=== PATIENT | female | born 1930 | race Caucasian/White ===

== ENCOUNTER 2017-03-14 20:38 | Inpatient (IN) ==
[2017-03-14 22:16] LABS: MANUAL DIFF NEEDED? NO
[2017-03-14 23:00] LABS: AGAP 12; ALBUMIN 4.2 g/dL (3.5-5.0); ALKALINE PHOSPHATASE 152 U/L (32-104); BUN 20 mg/dL (8-22); CALCIUM 9.6 mg/dL (8.8-10.2); CHLORIDE 98 mmol/L (98-107); COSMO 277; GOT 32 U/L (10-30); GPT 31 U/L (10-36); POTASSIUM 4.3 mmol/L (3.5-5.1); SODIUM 137 mmol/L (136-145); TCO2 27 mmol/L (25-35); TOTAL PROTEIN 6.8 g/dL (6.3-8.3)
[2017-03-14 23:09] LABS: BASO% 0.9 % (0.0-0.8); EOS# 0.19 X1000 (0.0-0.7); EOS% 2.1 % (0.0-10.0); HEMATOCRIT 42.8 % (37.0-47.0); HEMOGLOBIN 14.2 g/dL (12.0-16.0); IMM GRAN# 0.03 X1000 (0.0-0.04); IMM GRAN% 0.3 % (0.0-0.5); LYMPH# 1.55 X1000 (1.2-3.4); LYMPH% 17.2 % (20.5-51.1); MCH 30.4 PG (27-31); MCHC 33.2 g/dL (33-37); MCV 91.6 FL (81-99); MONO# 1.08 X1000 (0.11-0.59); MPV 10.4 FL (7.4-10.4); NEUT% 67.5 % (42.2-75.2); PLT 268 X1000 (130-400); RBC 4.67 XMIL (4.2-5.4)
[2017-03-14 23:32] LABS: INR 0.96 (0.86-1.15); PROTIME 13.1 Seconds (12.1-15.5)
[2017-03-15] MEDS ORDERED: ZOFRAN IV PRN (02:50)
[2017-03-15] MEDS ORDERED: TYLENOL PO PRN (02:50)
[2017-03-15] MEDS ORDERED: SODIUM CHLORIDE 0.9% INJ SCH (03:00)
[2017-03-15] MEDS: REQUIP PO SCH (03:48)
[2017-03-15] MEDS: PROTONIX IV SCH (03:48)
[2017-03-15] MEDS: NS 1,000 ML IV SCH ×2 (03:49→15:38)
--- NOTE | 2017-03-15 04:11 | HISTORY AND PHYSICAL ---
PRIMARY CARE PROVIDER: Dr. Lin. CHIEF COMPLAINT: Rectal bleeding. HISTORY OF PRESENT ILLNESS: Ms. Witt is an 86-year-old, female who presented to the ER at [facility] with complaints of onset of bloody stools that started approximately at 7 [facility]. Patient states that she went and ate dinner with her daughter, came home and felt as though she had to have a bowel movement, and that is when she noticed bright red blood in the toilet. The patient reports that since the initial onset, she has had approximately 4-5 episodes of passing bright red blood in her stool. Patient denies any previous history of this as well as having any previous history of gastrointestinal bleeding, diverticulosis, or diverticulitis. She denies any dizziness, fatigue, weakness, nausea, vomiting, or abdominal pain. Patient states that she takes one 81 mg aspirin daily. Otherwise, does not take any other over-the- counter NSAIDs. She denies any new medications or changes in her current home medications. She denies any fever, body aches, or chills. She denies any headache, dizziness, lightheadedness, chest pain, shortness of breath, abdominal pain, nausea, vomiting, diarrhea, dysuria, or urinary frequency. The patient does report some pain and tenderness in her lower extremities but states this is not of new onset and has been ongoing for years, and states that she has previously been evaluated for this. She currently takes Requip for restless legs. She also has chronic back pain due to scoliosis and spinal stenosis for which she takes Neurontin. Upon evaluation in the ER at [facility], the patient was found to be hemodynamically stable. At this time, her hemoglobin hematocrit are 14.2 and 42.8. Blood pressure is 83, as well as 144/61. She was transferred from [facility] ER for inpatient admission at [facility] and we will place a consult with gastroenterology for further evaluation of lower GI bleeding. REVIEW OF SYSTEMS: A 12 point review of systems was conducted with the patient. All were negative except for pertinent positives mentioned above in the HPI. PAST MEDICAL HISTORY: 1. Hypertension. 2. Restless legs syndrome. 3. Scoliosis. 4. Spinal stenosis. PAST SURGICAL HISTORY: 1. Cholecystectomy. 2. Bilateral carpal tunnel surgery. 3. Surgery bilaterally for trigger finger repair. SOCIAL HISTORY: The patient states that she currently lives alone, is a resident of [facility] in [place]. She denies any past or present history of tobacco, alcohol, or illicit drug use. FAMILY HISTORY: She reports that her mother at age 46 secondary to cervical cancer. She also had a history of thyroid disease. She states that her father had a history of diabetes mellitus and heart disease. She does not have any siblings. ALLERGIES: Patient reports allergies to penicillin, Lyrica, and codeine. HOME MEDICATIONS: 1. Gabapentin 300 mg p.o. b.i.d. 2. Aspirin 81 mg p.o. daily. 3. Requip 1 mg p.o. at bedtime. 4. Norvasc 5 mg p.o. q.a.m. DIAGNOSTIC DATA/LABORATORY RESULTS: White blood cell count 9.03, hemoglobin 14.2, hematocrit 42.8, platelet count 268,000. PT 13.1, INR 0.96. Sodium 137, potassium 4.3, chloride 98, bicarb 27, BUN 20, creatinine 0.8, glucose 111, calcium 9.6. Total bilirubin 0.2, AST 32, ALT 31, alkaline phosphatase is 152, lipase is 72. Pending diagnostic study at this time is a CT of the abdomen and pelvis with oral contrast only as well as an EKG in the morning. PHYSICAL EXAMINATION: VITAL SIGNS: Temperature 97.8 degrees, heart rate 83, respirations 18, blood pressure 144/61, oxygen saturation is 100% on room air. GENERAL: Ms. Miryam painter is a pleasant, 86-year-old, female who is resting comfortably in the inpatient bed. She was in no acute distress. She was awake, alert, and able to answer all questions appropriately. HEENT: Head is atraumatic, normocephalic. Pupils are equal, round, reactive to light with 3 mm bilaterally and brisk. Subconjunctivae were pink. Oral mucosa is moist. Oropharynx is clear. NECK: Supple. Trachea midline. No carotid bruits noted bilaterally upon auscultation. CARDIOVASCULAR: Patient has a normal S1 and S2. No murmurs, gallops, or rubs appreciated. PULMONARY: Patient symmetrical chest expansion bilaterally. Lung sounds are clear to auscultation in bilateral full paul. ABDOMEN: Soft, nondistended, though the patient was tender upon palpation in the left lower quadrant. No rebound tenderness noted. Bowel sounds were present in all 4 quadrants, were slightly hyperactive. EXTREMITIES: No cyanosis, clubbing, or edema noted. Pulse, motor, and sensory were intact in all extremities as well. Pedal pulses were 3+ bilaterally. The patient did report some slight tenderness upon palpation of the lower extremities, though states this is not a new onset and has been ongoing for a few years. No swelling noted to the lower extremities. INTEGUMENTARY: Patient's skin is pink, warm, dry, and intact. No lesions or sores noted. NEUROLOGICAL: Patient is alert and oriented to person, place, time, and situation. Cranial nerves 2-12 are grossly intact. ASSESSMENT AND PLAN: 1. Lower gastrointestinal bleed. For this, we will place the patient NPO at this time. We have placed a consult with Dr. Vincent with gastroenterology, and will await his evaluation and further recommendations. The patient did have some left lower quadrant tenderness upon examination. We have ordered a CT of the abdomen and pelvis with oral contrast for further evaluation of this and to rule out any diverticulitis or colitis. We will repeat a CBC in the morning and closely monitor the patient's hemodynamic status. We will continue to follow. 2. Hypertension. We will continue the patient's Norvasc 5 mg by mouth daily. At this time, the patient is hemodynamically stable. Blood pressure is within normal limits with the last reading of 144/61. 3. Restless legs syndrome. We will continue the patient's Requip. 4. Chronic back pain secondary to a history of scoliosis and spinal stenosis. We will continue the patient's Neurontin. The patient will be placed on the medical floor with telemetry. She will have vital signs every 4 hours. Deep venous thrombosis prophylaxis at this time will be provided with sequential compression devices. Gastrointestinal prophylaxis we have provided with Protonix 40 mg intravenous every 24 hours. We will repeat a CBC and BMP in the morning. We will provide fluid hydration with normal saline at 85 mL per hour. We will await the results of the CT of the abdomen and pelvis. Further orders and recommendations pending hospital course , diagnostic studies, and physician evaluation. Dictated by RYANN Domingo for Jerry Smith MD Examined pt myself and discussed case with CASHIER MANAGER cc: OlakunMD Bertha Benavides MD [facility]
[2017-03-15 06:36] LABS: MANUAL DIFF NEEDED? NO
[2017-03-15 06:39] LABS: BASO% 0.8 % (0.0-0.8); EOS# 0.11 X1000 (0.0-0.7); EOS% 1.8 % (0.0-10.0); HEMATOCRIT 36.8 % (37.0-47.0); HEMOGLOBIN 12.5 g/dL (12.0-16.0); IMM GRAN# 0.02 X1000 (0.0-0.04); IMM GRAN% 0.3 % (0.0-0.5); LYMPH% 17.8 % (20.5-51.1); MCV 91.3 FL (81-99); MONO# 0.67 X1000 (0.11-0.59); MONO% 10.8 % (1.7-9.3); MPV 9.7 FL (7.4-10.4); NEUT% 68.5 % (42.2-75.2); PLT 256 X1000 (130-400); RBC 4.03 XMIL (4.2-5.4)
[2017-03-15 07:13] LABS: AGAP 12; BUN 21 mg/dL (8-22); CALCIUM 8.8 mg/dL (8.8-10.2); CHLORIDE 101 mmol/L (98-107); COSMO 275; POTASSIUM 4.4 mmol/L (3.5-5.1); SODIUM 136 mmol/L (136-145); TCO2 23 mmol/L (25-35)
--- NOTE | 2017-03-15 08:14 | Diag Imaging Result Document ---
PROCEDURE NAME: CT ABD/PELVIS ORAL CONTR ONLY - 03/15/2017 CT ABDOMEN AND PELVIS WITH ORAL CONTRAST: FINDINGS: Minimal atelectasis in the lower lungs. The gallbladder has been removed. Normal noncontrasted liver and pancreas. Normal spleen an adrenal glands. No perinephric inflammation. No renal stones. No hydronephrosis. Nonspecific isodense nodule laterally in the left kidney measuring approximately 1.5 cm. Prominent atherosclerosis. No aneurysmal dilatation to the aorta. There is hroa-ko-evrinmeo scoliosis with degenerative spine changes. Stool is found throughout the colon. No inflammation about the appendix. No abscess. There are scattered diverticula. The urinary bladder is moderately distended. Normal uterus with a fatty nodule anteriorly measuring 1.4 cm. Neither ovary is enlarged. No free fluid. IMPRESSION: 1. Cholecystectomy. 2. Indeterminate left kidney nodule. 3. Mild constipation. There is diverticulosis. A preliminary report was given at 3:50 a.m.
[2017-03-15] MEDS: NORVASC PO SCH (08:37)
[2017-03-15] MEDS: NEURONTIN PO SCH (08:38)
--- NOTE | 2017-03-15 13:25 | PROGRESS NOTE ---
DATE: 03/15/2017 SUBJECTIVE: The patient is feeling well. No recurrent low GI bleed. No fever. No chills. No dizziness or lightheadedness. OBJECTIVE: Vital signs: Blood pressure 114/54, pulse of 71, respiration 18, temperature 97.7 degrees, saturation 100% room air. General appearance: Well-developed, well-nourished white female in no acute distress. HEENT: Anicteric. Clear conjunctivae. Neck: Supple. No JVD. No bruits. Cardiovascular: S1, S2. Normal rate and rhythm. No murmur, rubs, or gallops. Pulmonary: Clear to auscultation bilaterally. GI: Soft, nontender, nondistended. Normoactive bowel sounds. Musculoskeletal: No clubbing, cyanosis, or edema. LABORATORY STUDIES: White count 6.18, hemoglobin 4.03, hematocrit of 36.5, platelets of 256,000. Chemistry 136, potassium 4.4, chloride 101, bicarb 23, BUN 21, creatinine 0.6, glucose of 99. ASSESSMENT AND PLAN: This is an 86-year-old admitted to the hospital for bright red blood per rectum. 1. Lower gastrointestinal bleed, most likely from internal hemorrhoids or diverticular bleeding. GI saw the patient. Will prep her today for a colonoscopy tomorrow. 2. Hypertension. Will continue Norvasc for now. 3. Restless legs syndrome. We will put the patient on Requip. 4. Deep vein thrombosis prophylaxis. SCD for now. 5. We will continue supportive care. Clear liquids until tonight.
[2017-03-15] MEDS: GOLYTELY PO ONE ×2 (15:37→16:59)
--- NOTE | 2017-03-15 17:39 | CONSULTATION ---
DATE OF CONSULTATION: 03/15/2017 CONSULTING PHYSICIAN: Dr. Johnson Coats. REASON FOR CONSULT: Lower GI bleed. HISTORY OF PRESENT ILLNESS: This is an 86-year-old white female with no history of major medical problem except for hypertension, spinal stenosis, and scoliosis. Admitted to hospital last night when she presented to [place] ER with complaints of hematochezia. She tells me that she has been in good health until last night, when she had the sudden urge to have a bowel movement. When she did go she had some loose stools initially mixed with blood and then subsequently she had for 3-4 bowel movements with bright red blood and blood clots. She denied any abdominal pain but she was tender to palpation in the left lower quadrant area on examination. She denied any rectal pain. Has not had any tenesmus. Denied constipation or bloating. She has had occasional heartburn and indigestion but denies symptoms of reflux, dysphagia, odynophagia. Her appetite has been good. She is eating well. Has not lost any weight. She has not eaten out or has eaten anything that would result in infectious gastroenteritis. She has not had any fever or chills. Denies any headache but she did have some dizziness off and on for a long time, especially when she gets up quickly. She denies any sore throat, sores in her mouth. Has not had any chest pain, shortness of breath, or palpitation. Denies any cough, sputum, or hemoptysis. 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 PAST SURGICAL HISTORY: She has had a cholecystectomy, bilateral carpal tunnel release surgery, and had bilateral surgery for trigger finger. MEDICATION: Prior to hospitalization, she has been on amlodipine, Requip, aspirin, and gabapentin. ALLERGIES: Claims to be allergic to penicillin, Lyrica, and codeine. SOCIAL HISTORY: She is a . [facility]. Does not smoke. Does not drink. Does not do illicit drugs. FAMILY HISTORY: Noncontributory. REVIEW OF SYSTEMS: As per HPI as above. PHYSICAL EXAMINATION: General: On examination, very pleasant white female, average built, conscious, alert. Appears to be in no distress. Vital signs: Temperature 90 degrees Fahrenheit, pulse 88 per minute, breathing at 20, blood pressure 113/55. She weighs about 165 pounds. HEENT: Head is atraumatic, normocephalic. Eyes: Conjunctivae normal. Sclerae anicteric. Nares are patent. No discharge. Mouth: Buccal mucosa is moist. Throat is normal. Neck: Supple. No lymphadenopathy or thyromegaly. Chest: Bilaterally symmetrical. It is moving with respirations. Breath sounds audible bilaterally. No rhonchi or crepitations could be heard. Heart: S1, S2 audible. No murmur could be appreciated. Abdomen: Full, soft, mildly tender in the left lower quadrant area. No rebound, tenderness, or guarding noted. No mass or visceromegaly noted. Bowel sounds are audible. Extremities: No pedal edema, cyanosis, or clubbing was noted. WOOL FLEECE GRADER: Grossly intact. No sensory or motor deficit. LABS: Reviewed, which showed WBC 6.18, hemoglobin 12.5, hematocrit 36.8, MCV 91.3, platelets were 256,000. Sodium 136, potassium 4.4, chloride 101, bicarb 23, BUN is 21, creatinine 0.6. Transaminases were normal. IMPRESSION: A CT scan of the abdomen was essentially negative except for mild constipation, diverticulosis. IMPRESSION: This 86-year-old white female has presented with painless hematochezia, question of possible diverticular bleed. However, neoplastic lesion has to be considered since she has had her last colonoscopy a long time ago. She needs endoscopic evaluation. Depending on the findings, further plans made. In the meantime, I would continue current treatment. She does not appear to have bled a lot and her hemoglobin and hematocrit are within acceptable range, she is hemodynamically stable, and does not seem to be actively bleeding now. I have explained the findings and plan to the patient and her daughter, who was present bedside. I explained to them the procedure, its risks, benefits, and alternatives. They understood. All of their pertinent questions answered. They agreed to proceed. cc: MD Bertha Garrison MD
[2017-03-16] MEDS: REQUIP PO SCH ×2 (00:13→20:48)
[2017-03-16] MEDS: NEURONTIN PO SCH ×3 (00:13→20:48)
[2017-03-16] MEDS: PROTONIX IV SCH (04:33)
--- NOTE | 2017-03-16 05:27 | EKG Report ---
Test Performed on : 03/15/2017 06:20:19 AM Test Reason : GI Bleed Blood Pressure : / mmHG Vent. Rate : 083 BPM Atrial Rate : 083 BPM P-R Int : 188 ms QRS Dur : 076 ms QT Int : 362 ms P-R-T Axes : 058 003 046 degrees QTc Int : 425 ms Normal sinus rhythm. Normal ECG No previous ECGs available Confirmed by Amanda WEN, Vadim Barcenas ([id number]) on 03/16/2017 6:44:31 PM
[2017-03-16 07:52] LABS: MANUAL DIFF NEEDED? NO
[2017-03-16 08:03] LABS: BASO% 0.4 % (0.0-0.8); EOS# 0.19 X1000 (0.0-0.7); EOS% 2.7 % (0.0-10.0); HEMATOCRIT 34.1 % (37.0-47.0); HEMOGLOBIN 11.5 g/dL (12.0-16.0); LYMPH# 1.47 X1000 (1.2-3.4); LYMPH% 21.1 % (20.5-51.1); MCH 31.2 PG (27-31); MCHC 33.7 g/dL (33-37); MCV 92.4 FL (81-99); MONO# 0.84 X1000 (0.11-0.59); MPV 10.1 FL (7.4-10.4); NEUT% 63.8 % (42.2-75.2); PLT 244 X1000 (130-400); RBC 3.69 XMIL (4.2-5.4)
[2017-03-16 08:28] LABS: AGAP 14; BUN 8 mg/dL (8-22); CALCIUM 8.5 mg/dL (8.8-10.2); CHLORIDE 105 mmol/L (98-107); COSMO 283; POTASSIUM 3.7 mmol/L (3.5-5.1); SODIUM 143 mmol/L (136-145); TCO2 24 mmol/L (25-35)
--- NOTE | 2017-03-16 12:39 | PROGRESS NOTE ---
DATE: 03/16/2017 SUBJECTIVE: This patient is feeling well. No recurrent lower GI bleed. No fever. Pending colonoscopy today. OBJECTIVE: Vital Signs: Temperature 98.1 degrees, pulse 89, respiratory rate 16, blood pressure 133/65, oxygen saturation 98 on room air. HEENT: Head normocephalic. No trauma. PERRLA. Neck: Supple. No JVD. No masses. Central trachea. Cardiovascular: RRR. No murmurs. Abdomen: Soft, nontender, nondistended. No hepatosplenomegaly. Extremities: No edema. No clubbing. No cyanosis. Neurological: The patient is alert and oriented x3. No focal neurological deficits. LABORATORY: WBC 6.9, hemoglobin 15.5, hematocrit 34.1, platelets 244,000. Sodium 143, potassium 3.7, chloride 105, bicarbonate 24, BUN 8, creatinine 0.6, calcium 8.5, glucose 91. ASSESSMENT AND PLAN: 1. Lower gastrointestinal bleed. Pending colonoscopy today. Gastroenterology department is on board. Continue with the same management. 2. Hypertension. Continue with Norvasc for now. Continue to monitor. 3. Restless legs syndrome. Continue with Requip. 4. Deep vein thrombosis prophylaxis. She is on SCDs for now. 5. Gastrointestinal prophylaxis. Continue with Protonix given her GI bleed. cc: Garrison Ruggiero MD
[2017-03-16] MEDS ORDERED: DIPRIVAN 1% ONE (12:46)
[2017-03-16] MEDS: NORVASC PO SCH (13:49)
[2017-03-16] MEDS ORDERED: LR 1,000 ML ONE (14:13)
[2017-03-16] MEDS ORDERED: ANESTHESIA PB SET 88 IN 5742 ONE (14:13)
[2017-03-16] MEDS ORDERED: XYLOCAINE-MPF 2% ONE (14:13)
--- NOTE | 2017-03-16 21:24 | OPERATIVE NOTE ---
PROCEDURE DATE: 03/16/2017 PROCEDURE: Colonoscopy, polypectomy and biopsy. PREOPERATIVE DIAGNOSIS: Rectal bleeding. POSTOP DIAGNOSES: 1. Cecal polyps biopsied 2 polyps biopsied. 2. Rectal polyp polypectomy performed. 3. Diverticulosis. MEDICATION USED: MAC as per anesthesia. SCOPE: Olympus [id number]. HISTORY: This 86-year-old white female admitted to hospital with rectal bleeding. Endoscopy was done for diagnostic and therapeutic purposes. DESCRIPTION OF PROCEDURE: Informed consent was obtained from the patient. Procedure risks, benefits, alternatives were explained in layman's terms. She understood. All the pertinent questions were answered. Patient was brought to the endoscopy unit and was premedicated as per Anesthesia. After adequate sedation while she was lying left lateral position, digital rectal exam was performed which was normal. Scope was then gently introduced into the rectum and advanced under direct vision through the parts of colon all the way up to cecum. The cecum was identified by ileocecal valve and appendiceal orifice. Scope was then withdrawn paying careful attention to detail. Preparation was good. The visualized portion of the colon revealed a single polyp in the cecum, which was diminutive and less than 5 mm in size which was removed by cold biopsy forceps. The scope was withdrawn paying careful attention to details. Rest of the ascending colon, transverse colon were normal. In the distal descending colon and sigmoid colon there were multiple diverticula seen. The numbers were moderate and also they did not have any evidence of active bleeding or stigmata of recent bleed. Next the scope was withdrawn up to the rectum. Rectum was examined both straight and retroflexed view which revealed a polyp about 6-8 mm in size smooth surface. Polypectomy performed by snare cautery. No other pathology seen. Scope was removed. Patient tolerated procedure well. No complications noted. Patient was then transferred to the recovery area in a stable condition. IMPRESSION: 1. Cecal polyp. Polypectomy performed by cold biopsy forceps. 2. Rectal polyp polypectomy performed by snare and cautery. 3. Diverticulosis most likely the source of his bleeding but is not actively bleeding now. RECOMMENDATION: I will start her on a high-fiber, high residue diet. Would recommend MiraLAX 17 g in glass of water or juice every day. Follow up the biopsy report and follow up with the office in few weeks. Advised to follow up with Dr. Lin as needed. cc: Bertha Lin MD
[2017-03-17 06:36] LABS: MANUAL DIFF NEEDED? NO
[2017-03-17 06:41] LABS: BASO% 0.7 % (0.0-0.8); EOS# 0.23 X1000 (0.0-0.7); EOS% 3.9 % (0.0-10.0); HEMATOCRIT 32.4 % (37.0-47.0); HEMOGLOBIN 10.7 g/dL (12.0-16.0); LYMPH# 1.09 X1000 (1.2-3.4); LYMPH% 18.5 % (20.5-51.1); MCH 30.5 PG (27-31); MCV 92.3 FL (81-99); MONO# 0.84 X1000 (0.11-0.59); MONO% 14.3 % (1.7-9.3); NEUT% 62.6 % (42.2-75.2); PLT 238 X1000 (130-400); RBC 3.51 XMIL (4.2-5.4)
[2017-03-17 06:54] LABS: AGAP 10; BUN 11 mg/dL (8-22); CALCIUM 8.7 mg/dL (8.8-10.2); CHLORIDE 103 mmol/L (98-107); COSMO 275; POTASSIUM 3.7 mmol/L (3.5-5.1); SODIUM 138 mmol/L (136-145); TCO2 25 mmol/L (25-35)
[2017-03-17 07:51] VITALS: BP 143/54
[2017-03-17] MEDS: NEURONTIN PO SCH (08:51)
[2017-03-17] MEDS: NORVASC PO SCH (08:52)
[2017-03-17] MEDS ORDERED: ASPIRIN PO SCH (09:00)
--- NOTE | 2017-03-18 03:22 | PROVIDER DOCUMENTATION ---
This chart was entered by Rosa Mayes Scribe, acting as scribe for Gallo Zaragoza MD. HPI-Abdominal Pain/GI Problem - General Chief Complaint: GI Bleed Stated Complaint: BLEEDING FROM RECTUM Time Seen by Provider: 03/14/17 21:47 Source: patient Allergies/Adverse Reactions: Patient Allergies Allergy/AdvReac Type Severity Reaction Status Date / Time Penicillins Allergy Unknown Verified 03/14/17 21:01 pregabalin [From Lyrica] Allergy Unknown Verified 03/14/17 21:01 codeine AdvReac RASH Verified 03/14/17 21:01 - History of Present Illness-ABD Nature of Presenting Problems: PT IS A 86YOF PRESENTING TO THE ED C/O RECTAL BLEEDING. PT STATES SHE HAD THE URGE TO HAVE A BM AND DID SO AND IT WAS FOLLOWED BY A LARGE AMOUNT OF BRIGHT RED BLOOD. PT STATES SINCE FIRST EPISODE SHE HAS HAD 2 MORE BM THAT WERE JUST LARGE BLOOD CLOTS. PT DENIES ANY ABD PAIN OR OTHER COMPLAINTS AT THIS TIME Abdominal Pain Onset Location: reports: other (NO PAIN) Pain Radiation: reports: no radiation Quality of Pain: reports: none Severity in ED: reports: moderate Onset/Duration: reports: just prior to arrival Timing: reports: still present, intermittent Activities at Onset: reports: light activity Modifying Factors: improves with: nothing Associated Symptoms: denies: arm pain, constipation, diarrhea, fatigue, muscle aches, nausea, vomiting Last BM: this evening Dark Stools Present?: reports: bright red blood Rectal Bleeding: reports: blood mixed with stool, other (LARGE BLOOD CLOTS) # of Diarrhea Episodes: 3 Rectal Pain: reports: none Emesis Description: reports: none Bruising or Bleeding Gums?: No Similar Symptoms Previously?: No Recently seen or treated by another doctor?: No Review of Systems - Adult - REVIEW OF SYSTEMS - ADULT Constitutional: reports: no symptoms reported Eyes: reports: no symptoms reported Ears, Nose, Mouth & Throat: reports: no symptoms reported Cardiovascular: reports: no symptoms reported Respiratory: reports: no symptoms reported Gastrointestinal: reports: see HPI, rectal bleeding. denies: abdominal pain, diarrhea, nausea Genitourinary: reports: no symptoms reported Musculoskeletal: reports: no symptoms reported Integumentary: reports: no symptoms reported Neurological: reports: no symptoms reported Psychiatric: reports: no symptoms reported Endocrine: reports: no symptoms reported Hematologic/Lymphatic: reports: no symptoms reported Allergic/Immunologic: reports: no symptoms reported All Other Systems: Reviewed and Negative Past History - Adult - PAST MEDICAL HISTORY-ADULT Review of Records: reports: Old Records Reviewed, Nursing Assessment Review, Medications Reviewed, Social history reviewed & non-contributory. Major Childhood Illnesses: reports: denies history Cardiovascular: reports: denies history Respiratory: reports: denies history Gastrointestinal: reports: denies history Obstetrical/Gynecological: reports: denies history Genitourinary: reports: denies history Musculoskeletal: reports: denies history Neurological: reports: denies history Endocrine/Immune: reports: denies history Other Conditions: reports: denies history - IMMUNIZATION STATUS Childhood Immunizations: See Nurse Assessment Flu Vaccine: See Nurse Assessment - FAMILY HISTORY Family History: reviewed, not pertinent - SOCIAL HISTORY Smoking: denies, non-smoker Substance Use: none/never, denies Alcohol Use Frequency: never Living Situation: family Physical Exam-General - PHYSICAL EXAM-ADULT Initial Vital Signs Reviewed: Yes - CONSTITUTIONAL General Appearance: appears well, alert, mild distress. negative: no apparent distress - EYES Eyes: PERRL/EOMI, pink conjunctivae, fundi clear, no AV nicking - HEAD, EARS, NOSE, MOUTH & THROAT HENMT: normocephalic/atraumatic, moist mucous membranes, normal ENT inspection, TMs normal, pharynx normal - NECK Neck: non-tender, full range of motion, supple, normal inspection - RESPIRATORY Respiratory: chest non-tender, lungs clear, normal breath sounds, no pleuratic chest pain, no respiratory distress, no accessory muscle use - CARDIOVASCULAR Cardiovascular: normal peripheral pulses, regular rate, rhythm, no edema, no gallop, no JVD, no murmur - GASTROINTESTINAL (ABDOMEN) Abdominal Exam: normal bowel sounds, non tender, soft, no organomegaly, no pulsatile mass - LYMPHATIC Lymphatic: no adenopathy - MUSCULOSKELETAL Back Exam: normal inspection, no CVA tenderness, no vertebral tenderness Extremity: normal range of motion, non-tender, normal gait, normal inspection, no pedal edema, no calf tenderness, normal capillary refill, pelvis stable - SKIN Integumentary: normal color, normal turgor, warm/dry - NEUROLOGIC Neurologic: spray crew II-XII nml as tested, grossly normal, no motor/sensory deficits - PSYCHIATRIC Psych/Mental Status: normal mood/affect, normal thought content, normal thought process, oriented x 3 Progress - PLAN OF CARE/RESULTS Progress/Plan/Lab Results: Vital Signs - 8 hr 03/14/17 20:52 Temperature 97.8 F Pulse Rate 84 Respiratory Rate 20 Blood Pressure 161/68 O2 Sat by Pulse Oximetry 98 Orders Category Date Time Status CBC WITH ELECTRONIC DIFF [HEME] Stat Lab 03/14/17 22:05 Results CMP [COMPREHENSIVE METABOLIC PANEL] [CHEM] Stat Lab 03/14/17 22:05 Received LIPASE [CHEM] Stat Lab 03/14/17 22:05 Received PROTIME WITH INR [COAG] Stat Lab 03/14/17 22:05 Received TYPE & SCREEN [BBK] Stat Lab 03/14/17 22:05 Received Result Diagrams: 03/17/17 06:08 03/17/17 06:08 Departure - Departure Time of Disposition Decision: 03:22 DIAGNOSIS: GI bleed Disposition: ADMITTED INPATIENT 09 Certified Medical Emergency: Emergent Condition: Fair - Critical Care Note This patient required my direct personal management.: Yes This chart was documented by the indicated scribe, (Rosa Mayes Scribe) and accurately reflects the services I performed and decisions made by me, Gallo Zaragoza MD, as attested by the provider's signature.
--- NOTE | 2017-03-18 05:22 | DISCHARGE SUMMARY ---
ADMISSION DATE: 03/15/2017 DISCHARGE DATE: 03/17/2017 CONSULTATIONS: Dr. Vincent with gastroenterology. PERTINENT PROCEDURES: 1. Colonoscopy, polypectomy, and biopsy, performed by Dr. Vincent. 2. Abdomen and pelvis CT showed a cholecystectomy, indeterminate left kidney nodule, mild constipation, and diverticulosis. DISCHARGE DIAGNOSIS: 1. Lower gastrointestinal bleed, status post colonoscopy, that showed a cecal polyp that was removed, as well as a rectal polyp that was removed, and diverticulosis, most likely the source of the bleeding, but was not actively bleeding at the time of her colonoscopy. Patient will continue a high fiber, high residue diet, and recommend MiraLAX or juice every day, and follow up the biopsy report in a few weeks, and follow up with Dr. Lin. Hemodynamically, the patient has been stable. 2. Hypertension. Continue Norvasc. 3. Restless legs syndrome. Continue Requip. 4. Chronic back pain, secondary to history of scoliosis and spinal stenosis. Continue on Neurontin. HOSPITAL COURSE: Ms. Witt is an 86-year-old female. She carries a past medical history of hypertension, restless legs syndrome, scoliosis, and spinal stenosis. Presented to [facility] ED with complaints of onset of bloody stools that started at 7 p.m. on the night of her admission. She went to dinner with her daughter, came home and felt as though she had to have a bowel movement. That is when she noticed bright red blood in the toilet. Patient reports initial onset of 4-5 episodes of passing bright red blood in her stools, with no previous history of this, or any previous history of diverticulosis or diverticulitis. She only takes 81 mg of aspirin a day. She does not take any over the counter NSAIDs. On evaluation at the ER at [facility], she was found to be hemodynamically stable. Her hemoglobin and hematocrit was 14 and 42, heart rate was 83, and blood pressure 144/61. She was transferred from [facility] ER to inpatient admission at [facility] for a GI consult. The patient was made n.p.o. She was started on IV fluids. CT of her abdomen was performed. Monitored her hemoglobin and hematocrit closely. Patient did undergo a colonoscopy with polyp removal by Dr. Vincent. She was advised to follow a high-fiber, high residue diet, and recommends MiraLAX 17 g in a glass of water or juice every day. Follow up with her biopsy, as well as follow up with Dr. Lin. The patient is being discharged home today. DISCHARGE DIET: High-fiber, high-residue diet. DISCHARGE MEDICATIONS: 1. Amlodipine 5 mg p.o. q.a.m. 2. Aspirin 81 mg p.o. daily. 3. Gabapentin 300 mg p.o. b.i.d. 4. MiraLAX 17 g p.o. daily. 5. Requip 1 mg p.o. at bedtime. FOLLOWUP: Patient is being discharged home. She will need to follow up with Dr. Vincent to follow up biopsies. Patient will also need to follow up with Dr. Lin. She will return to the ED for any worsening of symptoms. DISCHARGE TIME: 30 minutes. Dictated by RYANN Suggs for Garrison Ruggiero MD cc: Garrison Ruggiero MD
[2017-03-18] MEDS ORDERED: MIRALAX PO SCH (09:00)
== END 2017-03-17 11:56 ==
LOC: P.ED 20:38 → 4N 03-15 00:09 → SUATTDRO 03-15 00:09
PROVIDERS: ATTEND Internal Medicine

== ENCOUNTER 2020-02-01 05:27 | Day surgery (SDC) ==
--- NOTE | 2020-01-25 08:27 | EKG Report ---
Test Performed on : 01/25/2020 08:18:46 AM Test Reason : PAT Blood Pressure : / mmHG Vent. Rate : 083 BPM Atrial Rate : 083 BPM P-R Int : 170 ms QRS Dur : 074 ms QT Int : 332 ms P-R-T Axes : 062 012 056 degrees QTc Int : 390 ms Normal sinus rhythm. Normal ECG When compared with ECG of 08-JUN-2018 09:53, No significant change was found Confirmed by Wayne Coelho MD ([id number]) on 01/25/2020 7:36:48 PM
[2020-01-25 08:35] LABS: URINE SOURCE CLEAN CATCH
[2020-01-25 08:59] LABS: BASO# 0.07 X1000 (0.0-0.2); BASO% 1.1 % (0.0-0.8); EOS# 0.21 X1000 (0.0-0.7); EOS% 3.4 % (0.0-10.0); HEMATOCRIT 43.7 % (37.0-47.0); HEMOGLOBIN 14.5 g/dL (12.0-16.0); LYMPH# 1.37 X1000 (1.2-3.4); MCH 30.6 PG (27-31); MCHC 33.2 g/dL (33-37); MCV 92.2 FL (81-99); MONO# 0.84 X1000 (0.11-0.59); MONO% 13.5 % (1.7-9.3); MPV 9.9 FL (7.4-10.4); NEUT# 3.73 X1000 (1.4-6.5); PLT 236 X1000 (130-400); RBC 4.74 XMIL (4.2-5.4); RDW 14.4 % (11.5-14.5); WBC 6.22 X1000 (4.8-10.8)
[2020-01-25 09:02] LABS: BILIRUBIN URINE NEGATIVE (NEGATIVE); BLOOD URINE NEGATIVE (NEGATIVE); COLOR YELLOW; GLUCOSE URINE NEGATIVE (NEGATIVE); KETONE URINE NEGATIVE (NEGATIVE); LEUKOCYTES URINE TRACE (NEGATIVE); NITRITE URINE NEGATIVE (NEGATIVE); PROTEIN URINE NEGATIVE (NEGATIVE); SP GRAVITY URINE 1.012; TURBIDITY URINE CLEAR (CLEAR); UROBILINOGEN URINE NORMAL (NORMAL)
[2020-01-25 09:04] LABS: UR EPITHELIAL CELLS <10 /HPF (<10); URINE BACTERIA NEGATIVE /HPF; URINE RBC <10 /HPF (<10); URINE WBC <10 /HPF (<10)
[2020-01-25 09:05] LABS: INR 0.94; PROTIME 12.7 Seconds (11.0-16.0)
[2020-01-25 09:06] LABS: PTT 25.7 Seconds (22.3-41.8)
[2020-01-25 09:19] LABS: AGAP 15; ALBUMIN 4.4 g/dL (3.5-5.0); BUN 15 mg/dL (8-22); CALCIUM 9.8 mg/dL (8.8-10.2); CHLORIDE 100 mmol/L (98-107); COSMO 276; CREATININE 0.8 mg/dL (0.5-0.9); ESTIMATED GFR > 60; GLUCOSE 93 mg/dL (70-104); POTASSIUM 4.7 mmol/L (3.5-5.1); SODIUM 138 mmol/L (136-145); TCO2 23 mmol/L (25-35)
[2020-01-25 12:34] LABS: HEMOGLOBIN A1C 5.7 % (4.8-6.0)
[2020-02-01] MEDS ORDERED: COLACE ONE (06:24)
[2020-02-01] MEDS ORDERED: PEPCID ONE (06:25)
[2020-02-01] MEDS ORDERED: LR 1,000 ML ONE (06:25)
[2020-02-01] MEDS ORDERED: CELEBREX ONE (06:25)
[2020-02-01] MEDS ORDERED: KEFZOL 1 GM/D5W 1 GM/50 ML IVPB ONE (06:25)
[2020-02-01] MEDS ORDERED: FENTANYL ONE (06:42)
[2020-02-01] MEDS ORDERED: DIPRIVAN 1% ONE (06:42)
[2020-02-01] MEDS ORDERED: XYLOCAINE-MPF 2% ONE (06:42)
[2020-02-01] MEDS ORDERED: SODIUM CHLORIDE 0.9% ONE (06:53)
[2020-02-01] MEDS ORDERED: TORADOL ONE (06:53)
[2020-02-01] MEDS ORDERED: CYKLOKAPRON 1,000 MG/NS 1,000 MG/100 ML IVPB ONE ×2 (06:53→06:54)
[2020-02-01] MEDS ORDERED: DURAMORPH ONE (06:53)
[2020-02-01] MEDS ORDERED: MARCAINE 0.25% PF ONE (06:53)
[2020-02-01] MEDS ORDERED: VANCOMYCIN ONE (06:53)
[2020-02-01] MEDS ORDERED: NEOSPORIN G.U. IRRIGANT ONE (06:54)
[2020-02-01] MEDS ORDERED: EXPAREL 1.3% ONE (06:54)
[2020-02-01] MEDS ORDERED: ZOFRAN ONE (08:11)
[2020-02-01] MEDS ORDERED: DECADRON ONE ×2 (08:11)
[2020-02-01] MEDS ORDERED: OFIRMEV 1000 MG/ISOTONIC SOLN 1,000 MG/100 ML BOTTLE ONE (08:11)
[2020-02-01] MEDS ORDERED: MORPHINE ONE (08:33)
[2020-02-01 08:39] LABS: URINE SOURCE CATH
[2020-02-01 08:45] LABS: BILIRUBIN URINE NEGATIVE (NEGATIVE); BLOOD URINE NEGATIVE (NEGATIVE); COLOR YELLOW; GLUCOSE URINE NEGATIVE (NEGATIVE); KETONE URINE NEGATIVE (NEGATIVE); LEUKOCYTES URINE NEGATIVE (NEGATIVE); NITRITE URINE NEGATIVE (NEGATIVE); PH URINE 6.5; PROTEIN URINE NEGATIVE (NEGATIVE); TURBIDITY URINE CLEAR (CLEAR); UROBILINOGEN URINE NORMAL (NORMAL)
[2020-02-01 08:47] LABS: UR EPITHELIAL CELLS <10 /HPF (<10); URINE BACTERIA NEGATIVE /HPF; URINE RBC <10 /HPF (<10); URINE WBC <10 /HPF (<10)
[2020-02-01] MEDS: PHENERGAN ONE ×2 (09:51→10:30)
[2020-02-01] MEDS: DILAUDID ONE ×3 (10:01→10:17)
--- NOTE | 2020-02-01 10:04 | OPERATIVE NOTE ---
PROCEDURE DATE: 02/01/2020 PREOPERATIVE DIAGNOSIS: Degenerative arthritis of the left knee. POSTOPERATIVE DIAGNOSIS: Degenerative arthritis of the left knee. PROCEDURES: Left total knee arthroplasty. DePuy Attune, size 5 narrow posterior stabilized femur, size 5 tibial tray, a 7 mm rotating platform tibial insert, and a 32 mm medialized anatomic patella. SURGEON: Dr. Thee Kelsey. POWDER WORKER: RYANN Low, who is necessary for proper positioning, manipulation of extremity during the case and retraction and improved efficiency. SECOND [employer]ORTS CENTRE MANAGER: Nir Bell RN. ANESTHESIA: General. IV FLUIDS: 1000 mL lactated Ringer's. ESTIMATED BLOOD LOSS: 30 mL. TOURNIQUET TIME: 85 minutes at 300 mmHg. COMPLICATIONS: None. INDICATION: The patient is an 89-year-old female with chronic history of pain and discomfort of the left knee. Continued pain and discomfort despite appropriate nonoperative treatment. X-rays revealed significant underlying degenerative osteoarthritis. Recommendation to proceed with left total knee arthroplasty was offered. Risks and benefits of surgery were explained, including the risks of anesthesia, , bleeding, infection, failure to relieve pain, postoperative stiffness, nerve injury, blood clots, and other imponderables. All questions were answered. The patient and family wished to proceed with surgery. DESCRIPTION OF PROCEDURE IN DETAIL: The patient was taken to the operating room and placed supine on the operating table. Once adequate anesthesia was obtained, the patient's left lower extremity was subsequently prepped and draped in the usual sterile fashion. Esmarch was used to exsanguinate the left lower extremity. Tourniquet was inflated to 300 mmHg. Standard anterior incision made with a skin knife. Medial and lateral skin envelopes were developed. Standard medial parapatellar arthrotomy was then performed. Patella fat pad was excised. Superior retractors then placed. Approximately 1 cm anterior to the PCL insertion, starting reamer was passed. Intramedullary guide with a distal femoral cutting block was pinned in position. Distal femoral cut was then performed in standard fashion. Attention was then turned to the proximal tibia, where using the extramedullary guide, the proximal tibial cutting block was pinned in position. Had good alignment confirmed with the alignment tommy. The proximal tibia was then resected. Medial and lateral menisci were excised. A curved osteotome was used to remove the posterior osteophytes off the distal femur. A spacer block was then placed and good soft tissue balancing in both flexion and extension. Attention then turned back to the tibia, and size 5 tibial tray appeared to be the correct size and was pinned into position. This was followed by central reamer and a fin punch. A box cutting guide was pinned on the distal femur. A box cut was performed. A trial femoral component placed and 2 lug holes were drilled. Trial tibial insert was then placed and had good soft tissue balancing. The patella was everted, resected in standard fashion. A size 32 appeared to be the correct size. Corresponding holes were drilled. The trial patella component was then placed and had good patellofemoral tracking. After this had been performed, the trial components were removed. Copious irrigation was performed with antibiotic pulsatile lavage while vancomycin was mixed with cement on the back table. Sequential cementing was then performed first with the tibial tray and excess cement with a Chandler followed by the femoral component. Excess cement was removed with a Chandler followed by trial tibial insert in full extension and axial loading was maintained while cement cured. The trial tibial insert in full extension and axial loading was maintained while cement cured. The patella component cement in standard fashion. Patella clamp was placed. While cement was curing, Exparel was placed in deep soft tissue, as well as subcutaneous tissue. After cement had cured, peripheral cement was removed with a small osteotome. The 7 mm rotating platform tibial insert appeared to be in the correct size. Trial insert was removed. Exparel was placed in the deep posterior capsule. The wound was copiously irrigated with antibiotic pulsatile lavage. A 7 mm rotating platform tibial insert was then placed. The knee was then carried through range of motion. Good range of motion, good soft tissue balance and good patellofemoral tracking. A 1/8 Hemovac drain was placed, was not sewn in. Copious irrigation performed once again with antibiotic pulsatile lavage. Appeared #1 Vicryl then used to repair the arthrotomy followed by 2-0 Vicryl to repair subcutaneous tissue and skin nikolai. Adaptic, sterile 4 x 4s, Webril, and a cryo unit applied to the left lower extremity. Patient tolerated the procedure well and was transferred to the recovery room in stable condition. cc: Thee Kelsey MD
[2020-02-01] MEDS ORDERED: NS 1,000 ML ONE (10:24)
[2020-02-01] MEDS ORDERED: OXY IR ONE (10:24)
--- NOTE | 2020-02-01 10:39 | Diag Imaging Result Doc PS360 ---
EXAM: KNEE 1-2 VIEWS-LEFT 02/01/2020 HISTORY: post op total knee TECHNIQUE: Two views COMMENT: There is a total knee arthroplasty. There is no evidence of acute fracture or other definite bony abnormalities. IMPRESSION: No evidence of acute bony abnormality. Electronically signed by Delgado Beckett 02/01/2020 10:37 AM
[2020-02-01] MEDS ORDERED: MORPHINE IV PRN ×3 (12:30)
[2020-02-01] MEDS ORDERED: OXY IR PO PRN (12:30)
[2020-02-01] MEDS ORDERED: MILK OF MAGNESIA PO PRN (12:30)
[2020-02-01] MEDS ORDERED: ZOFRAN PO PRN (12:30)
[2020-02-01] MEDS: NS 1,000 ML IV SCH ×2 (13:11→22:56)
[2020-02-01] MEDS: ULTRAM PO SCH ×2 (15:24→16:00)
[2020-02-01] MEDS: KEFZOL 1 GM/D5W 1 GM/50 ML IVPB IV SCH ×2 (16:00→22:55)
[2020-02-01] MEDS: TYLENOL PO SCH ×2 (16:00→20:10)
[2020-02-01] MEDS: NEURONTIN PO SCH (20:10)
[2020-02-01] MEDS: PERIDEX MT SCH (20:10)
[2020-02-01] MEDS: COLACE PO SCH (20:11)
[2020-02-01] MEDS: REQUIP PO SCH (20:11)
[2020-02-02] MEDS: NS 1,000 ML IV SCH (03:56)
[2020-02-02] MEDS: TYLENOL PO SCH ×4 (03:56→20:47)
[2020-02-02] MEDS: XARELTO PO SCH (05:44)
[2020-02-02 07:16] LABS: HEMATOCRIT 38.6 % (37.0-47.0); HEMOGLOBIN 13.2 g/dL (12.0-16.0)
[2020-02-02 07:33] LABS: AGAP 11; BUN 15 mg/dL (8-22); CALCIUM 9.1 mg/dL (8.8-10.2); CHLORIDE 101 mmol/L (98-107); COSMO 273; CREATININE 0.8 mg/dL (0.5-0.9); ESTIMATED GFR > 60; GLUCOSE 101 mg/dL (70-104); POTASSIUM 4.5 mmol/L (3.5-5.1); SODIUM 136 mmol/L (136-145); TCO2 24 mmol/L (25-35)
[2020-02-02] MEDS: ULTRAM PO SCH ×3 (08:13→16:33)
[2020-02-02] MEDS: NEURONTIN PO SCH ×2 (08:13→20:47)
[2020-02-02] MEDS: COZAAR PO SCH (08:13)
[2020-02-02] MEDS: PERIDEX MT SCH ×2 (08:13→20:47)
[2020-02-02] MEDS: COLACE PO SCH ×2 (08:13→20:47)
[2020-02-02] MEDS: NORVASC PO SCH (08:14)
--- NOTE | 2020-02-02 08:17 | ORTHOPAEDICS PROGRESS NOTE ---
DATE: 02/02/2020 SUBJECTIVE: Ms. Witt is postoperative day 1 of a left total knee arthroplasty. She is resting comfortably in bed at this time. She has not ambulated with physical therapy as of yet. She has no complaints at this time. OBJECTIVE: Ms. Witt is lying in bed in no acute distress. Her dressing has been changed to her left leg, and there is no active bleeding on her dressing at this time. Her drain has also been removed. She has some expected bruising to her left lower leg. She is able to dorsiflex and plantar flex her left foot without difficulty. She has a strong left pedal pulse. She does have some expected swelling of her lower leg, though her calf still remained soft. ASSESSMENT: Status post day 1 of a left total knee arthroplasty. PLAN: Ms. Witt lives at the [facility] in the independent living side. We plan to discharge her today if she ambulates well with physical therapy. She does have assistance at the [facility] that is available if needed. She will be discharged home on Xarelto to take for DVT prophylaxis as well as oxycodone for pain. She will follow up in the office in approximately 2 weeks for a recheck. She was instructed if she develops any redness, swelling, or drainage from her wound to suggest a secondary infection that she is to call the office. She was also instructed if she develops any pain in her calves that she is also to call the office. Addendum: Received a call from physical therapy that stated that Mrs. Witt did not ambulate well today and was only able to make it approximately 40 feet. She resides at [facility] on the independent living side and does have help as needed but no one will be staying with her around the clock. We will plan on keeping tonight with hopes that she is able to progress more with physical therapy prior to discharge. Dictated by RYANN Low for Thee Kelsey MD cc: MD DEANNA Bales
[2020-02-02] MEDS: OXY IR PO PRN ×2 (09:22→12:43)
[2020-02-02] MEDS: REQUIP PO SCH (20:47)
[2020-02-03] MEDS: OXY IR PO PRN (00:36)
[2020-02-03] MEDS: TYLENOL PO SCH ×2 (04:44→08:59)
[2020-02-03] MEDS: XARELTO PO SCH (06:03)
--- NOTE | 2020-02-03 07:21 | ORTHOPAEDICS PROGRESS NOTE ---
DATE: 02/03/2020 SUBJECTIVE: The patient is a pleasant 89-year-old female, who is 2 days status post left total knee arthroplasty. The patient is feeling comfortable this morning and feels better. PHYSICAL EXAMINATION: The left lower extremity wound looks good. There are no signs or symptoms of infection. Her calf is soft. She has active dorsiflexion, plantar flexion. Her hemoglobin and hematocrit from yesterday was 13.2 and 38.6. IMPRESSION: Postoperative day #2 status post left total knee arthroplasty. PLAN: At this point, will plan on discharging home after physical therapy. We will arrange for home physical therapy. cc: Thee Kelsey MD
[2020-02-03 07:23] LABS: HEMATOCRIT 35.2 % (37.0-47.0); HEMOGLOBIN 11.7 g/dL (12.0-16.0)
[2020-02-03 08:12] VITALS: BP 147/60
[2020-02-03] MEDS: NEURONTIN PO SCH (08:58)
[2020-02-03] MEDS: PERIDEX MT SCH (08:58)
[2020-02-03] MEDS: ULTRAM PO SCH (08:59)
[2020-02-03] MEDS: NORVASC PO SCH (08:59)
[2020-02-03] MEDS: COZAAR PO SCH (08:59)
[2020-02-03] MEDS: COLACE PO SCH (08:59)
== END 2020-02-03 10:45 | disposition home or self-care (01) ==
LOC: 4N 05:27 → OR 05:27
PROVIDERS: ATTEND Orthopaedic Surgery Adult Reconstructive Orthopaedic Surgery